=== PATIENT | male | born 1945 | race Native Hawaiian/Other Pacific Islander ===

== ENCOUNTER 2018-03-13 16:03 | Emergency (ER) | payer BC, MEDICARE ==
--- NOTE | 2018-03-13 18:43 | ED PDOC ---
HPI: SOB/CHF/COPD <Isma Orourke Y - Last Filed: 03/13/18 20:07> Chief Complaint (Provider): Shortness Of Breath History Per: Patient History/Exam Limitations: no limitations Onset/Duration Of Symptoms: Days (x 1 month) Current Symptoms Are (Timing): Still Present Quality: Tightness <Seng Jaramillo - Last Filed: 03/14/18 11:09> Time Seen by Provider: 03/13/18 17:08 Chief Complaint (Nursing): Shortness Of Breath Additional Complaint(s): 72 year old male with a history of Parkinson's presents to the ED with shortness of breath for the last month. Patient is accompanied by daughter who provided history. He also complains of extreme fatigue, feet swelling, urinary frequency and describes "heaviness" on chest. He usually urinates frequently, but it has increased in the last month. Dyspnea is worse when he lies flat on his back at night. Daughter reports he was last seen by his edge inker heels 3 weeks ago, had high cholesterol and low blood pressure. He was put back on Lipitor. Patient was seen by PMD yesterday who recommended he see edge inker heels again. Patient has appt on Sunday. She is worried about carotid artery blockage. Denies chest pain, fever and cough. PMD: Dr. Diaz (Seng Jaramillo) Past Medical History <Isma Orourke Y - Last Filed: 03/13/18 20:07> Reviewed: Historical Data, Nursing Documentation, Vital Signs - Medical History PMH: HTN, Hyperlipidemia, Kidney Stones, Parkinson's Disease, Chronic Kidney Disease, Sleep Apnea - Surgical History Surgical History: No Surg Hx - Family History Family History: States: No Known Family Hx Other Family History: stents and blockages - Immunization History Hx Tetanus Toxoid Vaccination: No Hx Influenza Vaccination: No Hx Pneumococcal Vaccination: No <Seng Jaramillo - Last Filed: 03/14/18 11:09> Vital Signs: Last Vital Signs Temp 97.6 F 03/13/18 20:08 Pulse 88 03/14/18 11:08 Resp 16 03/13/18 20:08 BP 140/80 03/13/18 20:08 Pulse Ox 93 L 03/14/18 11:08 - Allergies Allergies/Adverse Reactions: Allergies Allergy/AdvReac Type Severity Reaction Status Date / Time Sulfa (Sulfonamide Allergy ANAPHYLAXIS Verified 03/13/18 16:26 Antibiotics) Wells Criteria for PE - Wells Criteria for Pulmonary Embolism Clinical Signs and Symptoms of DVT: No P.E is #1 Diagnosis, or Equally Likely: No Heart Rate >100: No Immobilization at least 3 days;Surgery previous 4 weeks: No Previous, objectively diagnosed PE or DVT: No Hemoptysis: No Malignancy w/treatment within 6 months, or palliative: No Total Score: 0 <Seng Jaramillo - Last Filed: 03/14/18 11:09> Review of Systems ROS Statement: Except As Marked, All Systems Reviewed And Found Negative Constitutional: Positive for: Other (extreme fatigue ). Negative for: Fever Cardiovascular: Negative for: Chest Pain Respiratory: Positive for: Shortness of Breath. Negative for: Cough <Seng Jaramillo - Last Filed: 03/14/18 11:09> Physical Exam - Reviewed Nursing Documentation Reviewed: Yes Vital Signs Reviewed: Yes - Physical Exam Appears: Positive for: Non-toxic, No Acute Distress Head Exam: Positive for: ATRAUMATIC, NORMAL INSPECTION, NORMOCEPHALIC Skin: Positive for: Normal Color, Warm, Dry Eye Exam: Positive for: EOMI, Normal appearance, PERRL Neck: Positive for: Normal, Painless ROM, Supple Cardiovascular/Chest: Positive for: Regular Rate, Rhythm. Negative for: Murmur Respiratory: Positive for: Normal Breath Sounds. Negative for: Wheezing, Respiratory Distress Gastrointestinal/Abdominal: Positive for: Normal Exam, Soft. Negative for: Tenderness Extremity: Positive for: Normal ROM. Negative for: Deformity Neurologic/Psych: Positive for: Alert, Oriented. Negative for: Motor/Sensory Deficits <Seng Jaramillo A - Last Filed: 03/14/18 11:09> - Laboratory Results Result Diagrams: 03/13/18 19:00 03/13/18 19:00 <Isma Orourke - Last Filed: 03/13/18 20:07> - Laboratory Results Result Diagrams: 03/13/18 19:00 03/13/18 19:00 - ECG ECG: Positive for: Interpreted By Me, Viewed By Me ECG Rhythm: Positive for: Normal QRS, Normal ST Segment, Sinus Rhythm (normal ) . Negative for: ST/T Changes Rate: 88 O2 Sat by Pulse Oximetry: 93 (RA) Pulse Ox Interpretation: Normal <Seng Jaramillo - Last Filed: 03/14/18 11:09> Medical Decision Making <Isma Orourke Y - Last Filed: 03/13/18 20:07> <YoungjamesSeng - Last Filed: 03/14/18 11:09> Medical Decision Making: time: 17:50 Impression: dyspnea Diff diagnoses include but are not limited to: CHF, ACS, PE, obstructive sleep apnea r/o pneumonia, mass initial Plan: --EKG --BNP --BMP --Troponin I --CBC --D Dimer --CXR Scribe Attestation: Documented by Roxana Shaffer, acting as a scribe for Seng Jaramillo MD Provider Scribe Attestation: All medical record entries made by the Scribe were at my direction and personally dictated by me. I have reviewed the chart and agree that the record accurately reflects my personal performance of the history, physical exam, medical decision making, and the department course for this patient. I have also personally directed, reviewed, and agree with the discharge instructions and disposition. (Seng Jaramillo) Disposition <Isma Orourke Y - Last Filed: 03/13/18 20:07> - Patient ED Disposition Is Patient to be Admitted: Transfer of Care Counseled Patient/Family Regarding: Studies Performed, Diagnosis - Disposition Disposition: Transfer of Care Disposition Time: 19:00 Patient Signed Over To: Isma Orourke Handoff Comments: pending labs and x-ray report <Seng Jaramillo - Last Filed: 03/14/18 11:09> - Clinical Impression Clinical Impression: Shortness of breath - Disposition Condition: STABLE Additional Instructions: follow up with Dr Diaz in 1-2 days as well as your edge inker heels return to the ED with any worsening or concerning symptoms Instructions: Shortness of Breath (Dyspnea) (DC)
[2018-03-13 19:19] LABS: BASO % 0.7 % (0.0-2.0); EOS # 0.1 K/uL (0.0-0.7); EOS % 1.5 % (0.0-4.0); HEMOGLOBIN 12.5 g/dL (12.0-18.0); LYMPH # 1.5 K/uL (1.0-4.3); LYMPH % 24.9 % (20.0-40.0); MEAN CELL VOLUME 87.4 fl (80.0-94.0); MEAN CORPUSCULAR HEMOGLOBIN 30.8 pg (27.0-31.0); MEAN CORPUSCULAR HGB CONC 35.2 g/dL (33.0-37.0); MEAN PLATELET VOLUME 8.6 fl (7.2-11.7); MONO # 0.4 K/uL (0.0-0.8); MONO % 6.3 % (0.0-10.0); NEUT % 66.6 % (50.0-75.0); NRBC % 0.1 % (0.0-0.0); RBC 4.05 Mil/uL (4.40-5.90); RED CELL DISTRIBUTION WIDTH 13.3 % (11.5-14.5)
[2018-03-13 19:21] LABS: BLOOD UREA NITROGEN 19 mg/dl (9-20); CALCIUM 9.3 mg/dL (8.4-10.2); GFR AFRICAN-AMERICAN > 60; GFR NON-AFRICAN AMERICAN > 60
[2018-03-13 19:31] LABS: B-TYPE NATRIURETIC PEPTIDE 105 pg/ml (0-900)
[2018-03-13 20:09] VITALS: BP 140/80; RESP 16; TEMP 97.6
--- NOTE | 2018-03-13 20:13 | ED PDOC ---
- Laboratory Results Result Diagrams: 03/13/18 19:00 03/13/18 19:00 - ECG O2 Sat by Pulse Oximetry: 98 (RA) Pulse Ox Interpretation: Normal Medical Decision Making Medical Decision Making: Time: 19:00 --trasnfer of care endorsed to me by Dr. Jaramillo Chest x-ray FINDINGS: Lungs: Unremarkable. No consolidation. Pleural space: Unremarkable. No pneumothorax. Heart: Unremarkable. No cardiomegaly. Mediastinum: Unremarkable. Bones/joints: Unremarkable. IMPRESSION: Normal chest x-ray workup here negative. told pt and family that. spoke to micaela nazario nu mine, agreeable to outpt follow up. Scribe Attestation: Documented by Roxana Shaffer, acting as a scribe for Isma Orourke MD Provider Scribe Attestation: All medical record entries made by the Scribe were at my direction and personally dictated by me. I have reviewed the chart and agree that the record accurately reflects my personal performance of the history, physical exam, medical decision making, and the department course for this patient. I have also personally directed, reviewed, and agree with the discharge instructions and disposition. Disposition Counseled Patient/Family Regarding: Studies Performed, Diagnosis, Need For Followup - Clinical Impression Clinical Impression: Shortness of breath - POA Present On Arrival: None - Disposition Disposition: Routine/Home Disposition Time: 20:00 Condition: IMPROVED Additional Instructions: follow up with Dr Diaz in 1-2 days as well as your comfort advisor return to the ED with any worsening or concerning symptoms Instructions: Shortness of Breath (Dyspnea) (DC) Forms: [employer] (Greenlandic)
--- NOTE | 2018-03-14 08:06 | RAD ---
PROCEDURE: CHEST RADIOGRAPH, 1 VIEW HISTORY: dyspnea COMPARISON: None. FINDINGS: LUNGS: Clear. PLEURA: No pneumothorax or pleural fluid seen. CARDIOVASCULAR: No radiographic findings to suggest acute or significant cardiovascular disease. OSSEOUS STRUCTURES: No significant abnormalities. VISUALIZED UPPER ABDOMEN: Normal. OTHER FINDINGS: None. IMPRESSION: No active disease.
[2018-03-14 11:08] VITALS: PULSE 88; O2SAT 93
--- NOTE | 2018-03-15 10:57 | CARD ---
APPROVED REPORT EKG Measurement Heart [id number] <Conclusion> Normal sinus rhythm Normal ECG
== END 2018-03-13 20:17 | disposition home or self-care (01) ==
LOC: H.ER 16:03
DX: R06.02 Shortness of breath (principal); G20 Parkinson's disease; J44.9 Chronic obstructive pulmonary disease, unspecified; N18.9 Chronic kidney disease, unspecified; Z87.442 Personal history of urinary calculi; E78.5 Hyperlipidemia, unspecified

== ENCOUNTER 2019-02-28 20:40 | Emergency (ER) | payer BC ==
[2019-02-28] MEDS ORDERED: Sodium Chloride 0.9% 1,000 ML IV STA (21:24)
--- NOTE | 2019-02-28 22:20 | ED PDOC ---
HPI: SOB/CHF/COPD Time Seen by Provider: 02/28/19 21:22 Chief Complaint (Nursing): Palpitations Chief Complaint (Provider): Palpitations History Per: Patient, Family ( and daughter) History/Exam Limitations: no limitations Onset/Duration Of Symptoms: Hrs (x4) Current Symptoms Are (Timing): Still Present Additional Complaint(s): 73 year old [place] male with medical history of Parkinson's Disease and hypertension, presents to the emergency department with and daughter at bedside for an evaluation of palpitations and shortness of breath ongoing for 4 hours prior to arrival. As per family, patient has been complaining of worsening poor well-being. He denies any fever, chills, decreased appetite, urinary complaints, cough, nausea, vomiting, or rapid weight loss. Past Medical History Reviewed: Historical Data, Nursing Documentation, Vital Signs Vital Signs: Last Vital Signs Temp 97.9 F 02/28/19 20:49 Pulse 82 02/28/19 20:49 Resp 19 02/28/19 20:49 BP 132/79 02/28/19 20:49 Pulse Ox 98 02/28/19 20:49 Primary Care Provider: Tj Andrea - Medical History PMH: HTN, Hyperlipidemia, Kidney Stones, Parkinson's Disease, Chronic Kidney Disease, Sleep Apnea - Family History Family History: States: Unknown Family Hx - Immunization History Hx Tetanus Toxoid Vaccination: No Hx Influenza Vaccination: No Hx Pneumococcal Vaccination: No - Home Medications Home Medications: Ambulatory Orders Medication Instructions Recorded Ciprofloxacin [Cipro] 500 mg PO Q12 #14 tab 02/28/19 - Allergies Allergies/Adverse Reactions: Allergies Allergy/AdvReac Type Severity Reaction Status Date / Time Sulfa (Sulfonamide Allergy ANAPHYLAXIS Verified 02/28/19 20:55 Antibiotics) Review of Systems ROS Statement: Except As Marked, All Systems Reviewed And Found Negative Constitutional: Positive for: Malaise, Weight loss (gradually over 2 years). Negative for: Fever, Chills Cardiovascular: Positive for: Palpitations Respiratory: Positive for: Shortness of Breath. Negative for: Cough Gastrointestinal: Positive for: Other (decreased appetite). Negative for: Nausea, Vomiting Genitourinary Male: Negative for: Dysuria, Incontinence, Hematuria Physical Exam - Reviewed Nursing Documentation Reviewed: Yes Vital Signs Reviewed: Yes - Physical Exam Appears: Positive for: No Acute Distress Head Exam: Positive for: ATRAUMATIC, NORMAL INSPECTION, NORMOCEPHALIC Skin: Positive for: Normal Color Eye Exam: Positive for: Normal appearance, EOMI, PERRL ENT: Positive for: Normal ENT Inspection Neck: Positive for: Normal, Supple Cardiovascular/Chest: Positive for: Regular Rate, Rhythm. Negative for: Murmur, Bradycardia, Tachycardia Respiratory: Positive for: Normal Breath Sounds. Negative for: Accessory Muscle Use, Wheezing, Respiratory Distress Gastrointestinal/Abdominal: Positive for: Normal Exam, Soft. Negative for: Tenderness Extremity: Positive for: Normal ROM (upper/lower). Negative for: Pedal Edema, Calf Tenderness Neurological/Psych: Positive for: Awake, Alert, Normal Tone, Oriented, cellar hand II- XII (masked facies), Other (mild resting tumor) - Laboratory Results Result Diagrams: 02/28/19 22:36 02/28/19 22:36 - ECG O2 Sat by Pulse Oximetry: 98 (RA) Pulse Ox Interpretation: Normal Medical Decision Making Medical Decision Making: Initial Impression: 73 year old Hungarian male with nonspecific palpitations and shortness of breath in setting of known Parkinson's disease. Initial Plan: * EKG * Labs including UA * CXR * IV fluids * Blood culture * Influenza AB Labs reviewed show no clinically sig abnormalities with exception of UA that t is indicative of UTI; IV Rocephin ordered Chest Xray NAD PAtient stable for discharge home Dx UTI Scribe Attestation: Documented by Nikki Whaley, acting as a scribe for Jamarcus Sandhu MD. Provider Scribe Attestation: All medical record entries made by the Scribe were at my direction and personally dictated by me. I have reviewed the chart and agree that the record accurately reflects my personal performance of the history, physical exam, medical decision making, and the department course for this patient. I have also personally directed, reviewed, and agree with the discharge instructions and disposition. Disposition - Clinical Impression Clinical Impression: UTI (urinary tract infection) - Disposition Disposition: Routine/Home Disposition Time: 23:00 Condition: STABLE Prescriptions: Ciprofloxacin [Cipro] 500 mg PO Q12 #14 tab Instructions: Urinary Tract Infections in Adults Forms: [facility] (Citizen Of [place])
[2019-02-28 22:34] LABS: URINE BACTERIA MOD (<OCC); URINE BILIRUBIN NEGATIVE (NEGATIVE); URINE BLOOD NEGATIVE (NEGATIVE); URINE CLARITY CLOUDY (Clear); URINE COLOR YELLOW (YELLOW); URINE GLUCOSE (UA) NEG (NEGATIVE); URINE LEUKOCYTE ESTERASE MOD Leu/uL (Negative); URINE PROTEIN 30 mg/dL (NEGATIVE); URINE UROBILINOGEN 0.2-1.0 mg/dL (0.2-1.0)
[2019-02-28 22:42] LABS: BASO % 0.8 % (0.0-2.0); EOS # 0.3 K/uL (0.0-0.7); HEMOGLOBIN 12.8 g/dL (12.0-18.0); LYMPH # 1.5 K/uL (1.0-4.3); LYMPH % 23.6 % (20.0-40.0); MEAN CELL VOLUME 86.7 fl (80.0-94.0); MEAN CORPUSCULAR HEMOGLOBIN 29.2 pg (27.0-31.0); MEAN CORPUSCULAR HGB CONC 33.6 g/dL (33.0-37.0); MEAN PLATELET VOLUME 8.4 fl (7.2-11.7); MONO # 0.4 K/uL (0.0-0.8); MONO % 6.8 % (0.0-10.0); NEUT # 4.1 K/uL (1.8-7.0); NEUT % 64.8 % (50.0-75.0); RBC 4.4 Mil/uL (4.40-5.90); RED CELL DISTRIBUTION WIDTH 14.7 % (11.5-14.5); WHITE BLOOD COUNT 6.3 K/uL (4.8-10.8)
[2019-02-28 22:55] LABS: PARTIAL THROMBOPLASTIN TIME 30.2 Seconds (25.6-37.1)
[2019-02-28 22:57] LABS: ALB/GLOB RATIO 1.4 (1.0-2.1); ALBUMIN 4.2 g/dL (3.5-5.0); ALT/SGPT 15 U/L (21-72); AST/SGOT 24 U/L (17-59); BLOOD UREA NITROGEN 25 mg/dl (9-20); CALCIUM 9.3 mg/dL (8.4-10.2); GFR NON-AFRICAN AMERICAN > 60
[2019-02-28 23:09] LABS: B-TYPE NATRIURETIC PEPTIDE 86.6 pg/ml (0-900)
[2019-02-28] MEDS ORDERED: cefTRIAXone (Rocephin) 1 gm Inj ONE (23:38)
[2019-03-01 01:33] VITALS: BP 142/90; PULSE 89; RESP 18; TEMP 98.2
[2019-03-01 05:08] VITALS: O2SAT 98
--- NOTE | 2019-03-01 08:34 | RAD ---
Date of service: 02/28/2019 HISTORY: chest pain COMPARISON: No prior. TECHNIQUE: 1 view obtained. FINDINGS: LUNGS: No active pulmonary disease. PLEURA: No significant pleural effusion identified, no pneumothorax apparent. CARDIOVASCULAR: No aortic atherosclerotic calcification present. Normal cardiac size. No pulmonary vascular congestion. OSSEOUS STRUCTURES: No significant abnormalities. VISUALIZED UPPER ABDOMEN: Normal. OTHER FINDINGS: None. IMPRESSION: No active disease.
--- NOTE | 2019-03-01 19:15 | CARD ---
APPROVED REPORT Date of service: 02/28/2019 EKG Measurement Heart [id number] <Conclusion> Normal sinus rhythm Normal ECG
== END 2019-03-01 01:32 | disposition home or self-care (01) ==
LOC: H.ER 20:40
DX: N39.0 Urinary tract infection, site not specified (principal)
CPT/HCPCS: 71045; 80053; 81003; 83605; 83880; 84484; 85025; 85610; 85730; 87040; 87086; 87181; 87804; 93005; 96374; 99283; J0696